=== PATIENT | male | born 1950 | race Caucasian/White ===

== ENCOUNTER 2016-09-23 08:50 | Emergency (ER) | payer MEDICARE, OTHER ==
[~2016-09-23] VITALS: Ht 180.3 cm; Wt 5.0 kg
[2016-09-23 08:54] VITALS: BP 155/88; PULSE 94; RESP 18; TEMP 97.5; O2SAT 98
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
[2016-09-23] MEDS ORDERED: KETOROLAC TROMETHAMINE 30 MG/ML (IVP) VIAL IV PUSH ONE (09:15)
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
[2016-09-23] MEDS ORDERED: TRAM50TA PO (10:00)
[2016-09-23] MEDS ORDERED: IBUP-232 PO (10:00)
--- NOTE | 2016-09-23 18:53 | EKG ---
Date Performed: 09/23/2016 Time Performed: 08:57:43 PTAGE: 66 years EKG: Sinus rhythm POSSIBLE OLD INFERIOR VA NO PREVIOUS TRACING DOCTOR: Harry Sung Interpretating Date/Time 09/23/2016 18:51:56
== END 2016-09-23 10:59 | disposition home or self-care (01) ==
LOC: NEPC 08:50
DX: S20.212A Contusion of left front wall of thorax, initial encounter (principal); I10 Essential (primary) hypertension; V43.62XA Car passenger injured in collision with other type car in traffic accident, initial encounter; Y92.410 Unspecified street and highway as the place of occurrence of the external cause
CPT/HCPCS: 71020; 93005; 96374; 99284; J1885